=== PATIENT | female | born 1965 | race African-American/Black ===

== ENCOUNTER 2019-07-08 01:48 | Inpatient (IN) | payer MEDICARE, MEDICAID ==
[2019-07-08 02:19] LABS: Actual Bicarbonate (HCO3a) 10.7 mEq/L (22-28); Analyzer IN Cardio ER; Base Excess (BEa) -23.5 mEq/L (-2.0 to +3.0); Calcium, Ionized 1.28 mmol/L (1.12-1.30); Carboxyhemoglobin (COHb) 5.9 gm% (0.0-3.0); Hemoglobin (Hb) 12.1 g/dL (12.0-16.0); O2 Tension (PaO2) 127.6 mmHg (80.0-100.0); Potassium - ABG Lab 4.75 mmol/L (3.70-5.30)
[2019-07-08] MEDS ORDERED: Magnesium 2 GM/50 ML BAG (IN WATER) ONE (02:21)
[2019-07-08 02:24] LABS: CO2 Tension 65.1 mmHg (35.0-45.0); pH, Arterial 6.83 (7.35-7.45)
[2019-07-08 02:25] LABS: ALV-art Gradient 504.025 (0-20); Puncture Site LRA
[2019-07-08] MEDS ORDERED: Fentanyl 100 MCG/2 ML VIAL ONE (02:32)
[2019-07-08] MEDS ORDERED: Midazolam HCl 2 mg/2 ml Vial ONE (02:32)
[2019-07-08] MEDS ORDERED: fentaNYL Citrate/PF 2,000 MCG in Sodium Chloride 0.9% 60 ML IV SCH (02:33)
[2019-07-08] MEDS ORDERED: Sodium Bicarb 50 MEQ/50 ML VIAL ONE (02:49)
[2019-07-08 03:04] LABS: Mean Corpuscular HGB CONC 32.3 g/dL (32.0-36.0); Mean Corpuscular Volume 89.6 fL (78.0-98.0); Mean Platelet Volume 8.9 fL (7.4-10.4); Platelet Count 218 thou/uL (130-400); RBC Distribution Width 16.1 % (11.5-14.5); Red Blood Cell (RBC) Count 4.16 mill/uL (4.20-5.40); White Blood Cell (WBC) Count 16.1 thou/uL (4.8-10.8)
[2019-07-08 03:27] LABS: ALT (SGPT) 82 U/L (8-55); AST (SGOT) 68 U/L (5-34); Albumin 3.6 g/dL (3.5-5.0); Alkaline Phosphatase 57 U/L (40-110); Anion Gap 28 mmol/L (10-20); BUN (Urea Nitrogen) 65 mg/dL (9.8-20.1); Bilirubin, Total 0.5 mg/dL (0.2-1.2); CK (CPK) 141 U/L (29-168); Calc. Creatinine Clearance 0 mL/min (70-130); Calcium 11.5 mg/dL (7.8-10.44); Carbon Dioxide 14 mmol/L (22-29); Chloride 102 mmol/L (98-107); Estimated GFR-MDRD 4; Globulin 3.4 g/dL (2.4-3.5); Glucose 207 mg/dL (70-105); Potassium 5.6 mmol/L (3.5-5.1); Sodium 138 mmol/L (136-145)
--- NOTE | 2019-07-08 03:29 | PDOC.FPRHP ---
- History of Present Illness Chief Complaint: Cardiac Arrest History of Present Illness: 53yo female PMHx of ESRD presented to the ED via private car with cardiac arrest. Pt's friends who drove pt to ED reported that she was at their house when she started to complain of SOB. They called 911 but decided to transport her themselves. In route pt had a seizure and became unresponsive. Upon arrival pt was pulseless and resuscitation was initiated. Pt received multiple rounds of epi and ROSC was achieved. Pt was intubated and had a fem line placed. Pressures were extremely elevated as high as 270/130, but had came down to 180/ 95 at time of evaluation. Pt is a MWF dialysis pt of Dr. Mobley. She has had multiple admissions in the past requiring immediate hemodialysis. Upon eval no friends or family members were present further limiting recent history. ED Course: 3 amps sodium bicarb, 2mg Epi, 1,000mg calcium chloride, 1L NS, 2g Mg Sulfate. Pt was sedated and intubated. - Allergies/Adverse Reactions Allergies Allergy/AdvReac Type Severity Reaction Status Date / Time hydralazine Allergy Unknown Verified 07/08/19 05:38 Penicillins Allergy Unknown Verified 07/08/19 05:38 morphine AdvReac Unknown Verified 07/08/19 05:38 - History PMHx:ESRD with MWF dialysis, HTN, HLD, seizures, extensive psych history PSHx: L knee, uterine ablation, left extremity dialysis shunt FHx: non-contributory Social: no smoking, alcohol, drugs - Review of Systems ROS unobtainable: due to mental status - Vital signs BP: 189/146, Pulse: 108, Temp: 94.1 (Criticore Temp), O2 sat: 85 on Ventilator - Physical Exam -Constitutional: Sedated and intubated HEENT: normocephalic and atraumatic -HEENT: Pupils sluggishly reactive to light Neck: no JVD Heart: pulses present -Heart: Tachycardic, difficult to hear heart sounds over ventilator -Lungs: Audible secretion movement with ventilated respirations, equal breath sounds Abdomen: soft Musculoskeletal: normal structure, normal tone -Neurological: Unable to assess in paralyzed and sedated pt Skin: no rash/lesions Heme/Lymphatic: no unusual bruising or bleeding, no purpura FMR H&P: Results - Labs Result Diagrams: 07/08/19 02:50 07/08/19 02:50 Lab results: WBC 16.1 thou/uL (4.8-10.8) H 07/08/19 02:50 Hgb 12.0 g/dL (12.0-16.0) 07/08/19 02:50 Hct 37.2 % (36.0-47.0) 07/08/19 02:50 MCV 89.6 fL (78.0-98.0) 07/08/19 02:50 Plt Count 218 thou/uL (130-400) 07/08/19 02:50 ABG pH 6.83 (7.35-7.45) L* 07/08/19 02:08 ABG pCO2 65.1 mmHg (35.0-45.0) H* 07/08/19 02:08 ABG pO2 127.6 mmHg (80.0-100.0) H 07/08/19 02:08 - EKG Interpretation EKG: Tachycardic w/ complete RBBB FMR H&P: A/P - Problem List (1) Cardiac arrest Current Visit: Yes Status: Acute Code(s): I46.9 - CARDIAC ARREST, CAUSE UNSPECIFIED (2) End stage renal disease Current Visit: Yes Status: Acute Code(s): N18.6 - END STAGE RENAL DISEASE (3) Seizure Current Visit: Yes Status: Acute Code(s): R56.9 - UNSPECIFIED CONVULSIONS (4) High anion gap metabolic acidosis Current Visit: Yes Status: Acute Code(s): E87.2 - ACIDOSIS (5) Hyperkalemia Current Visit: Yes Status: Acute Code(s): E87.5 - HYPERKALEMIA (6) Hypertension Current Visit: Yes Status: Acute Code(s): I10 - ESSENTIAL (PRIMARY) HYPERTENSION (7) Hyperlipidemia Current Visit: Yes Status: Acute Code(s): E78.5 - HYPERLIPIDEMIA, UNSPECIFIED - Plan Cardiac Arrest - Achieved ROSC - S/p epi, sodium bicarb, calcium, mg - Intubated w/ sedation protocol - Hypothermic protocol - Ordered mg, phos, UDS, lactic, BNP - CXR and brain CT pending - Pulm consulted Anion Gap Metabolic Acidosis - Improved following sodium bicarb and mechanical ventilation - Likely 2/2 to lactic acidosis - Continue to trend BMP Seizures - PRN ativan - CT brain pending - Cont home rx once rec'd End Stage Renal Disease Hyperkalemia - Itz consulted - Emergent hemodialysis - Trend BMP Hypertension - Cardiem drip at 5 - Cont to monitor for severe pressures and titrate - Likely will come down with hemodialysis and continued sedation rx HLD - Continue home rx once rec'd Diet: NPO VTE: Heparin Dispo: Admit to CCU for sedation and intubation monitoring and hypothermia protocol. Pt's prognosis is poor considering time without CPR. FMR H&P: Upper Level - Plan Date/Time: 07/08/192 I, Elvis Granados MD, have evaluated this patient and agree with findings/plan as outlined by international relations professor resident. Pertinent changes/additions are listed here. Archana Billy is a 53 year old F with a PMH of ESRD on HD, HTN, HLD, unspecified seizure disorder who presented to the ED uresponsive. Patient's friend was with patient day of arrival and, per ERMD, said patient was complaining of shortness of breath. On the way to the ED, patient had a seizure if her friend's car and became unresponsive. Upon arrival to ED, patient was in asystole and CPR was initiated. Patient was intubated and started on mechical ventilation, 3 amps bicarb, 2 mg epi, 1 g calcium chloride, 1 L NS, and 2 g Mg Sulfate were given. Right fem CVC placed and L tibial IO placed. Initially, after achieving ROSC, patient was hypotensive but began to seize again. BPs since that time have been elevated as high as 270s systolic. Pt afebrile. Potassium is 5.6. WBC 16.1. Pt has had multiple admissions over the past several months requiring urgent hemodialysis. Dr. Fonseca was consulted from the ED and recommended emergent hemodialysis due to metabolic acidosis, hyperkalemia and fluid overload. Patient was transferred to the ICU. Unsure of exact etiology at this time. Checking Mag, Phos, UDS, BNP. Brain CT appeared negative on preliminary read, awaiting radiology read. Admitting to CCU for s/p Cardiac arrest with ROSC, hypertensive emergency with pulmonary edema. Starting nicardipine gtt for elevated BPs. Patient will undergo emergent HD. Please see international relations professor note above for full H&P, which I have reviewed and agree with.
[2019-07-08] MEDS ORDERED: Midazolam HCl 5 mg/ml Vial ONE (03:36)
[2019-07-08] MEDS ORDERED: Propofol 1,000 MG/100 ML VIAL IV ONE (03:36)
[2019-07-08 03:43] LABS: Band 3 % (5-11); Eosinophils 1 % (0-10); Lymphocytes 41 % (21-51); MDiff Complete? YES; Monocytes 6 % (0-10); Neutrophil 49 % (42-75); Platelet Morphology Comment Appears Adequate; RBC Morphology Normal
[2019-07-08 04:02] LABS: Actual Bicarbonate (HCO3a) 21.3 mEq/L (22-28); Base Excess (BEa) -3.3 mEq/L (-2.0 to +3.0); CO2 Tension 36.6 mmHg (35.0-45.0); Calcium, Ionized 1.27 mmol/L (1.12-1.30); Carboxyhemoglobin (COHb) 3.1 gm% (0.0-3.0); Hemoglobin (Hb) 13.3 g/dL (12.0-16.0); Potassium - ABG Lab 5.44 mmol/L (3.70-5.30); pH, Arterial 7.38 (7.35-7.45)
[2019-07-08 04:03] LABS: O2 Tension (PaO2) 46.1 mmHg (80.0-100.0)
[2019-07-08 04:04] LABS: Puncture Site RBR
[2019-07-08] MEDS ORDERED: Propofol BOLUS 1,000 MG/100 ML VIAL IV PRN (04:28)
[2019-07-08] MEDS ORDERED: Fentanyl BOLUS 250 ML IVPB PRN (04:28)
[2019-07-08] MEDS ORDERED: Morphine 2 MG/ML SYRINGE SLOW IVP PRN (04:28)
[2019-07-08] MEDS ORDERED: DISCONTINUE PREVIOUS NARCOTIC PAIN MEDICATIONS AND BENZODIAZEPINES FS SCH (04:28)
[2019-07-08 04:41] VITALS: BMI 29.1
[2019-07-08] MEDS ORDERED: Acetaminophen 650 MG Suppository PR PRN (04:55)
[2019-07-08] MEDS ORDERED: Acetaminophen 325 MG TAB PO PRN (04:55)
--- NOTE | 2019-07-08 04:58 | PDOC.EVN ---
Event Note - Event Note Event Note: Date/Time: 07/08/19 0456 I personally evaluated the patient and discussed the management with Dr. Canseco I agree with the History, Examination, Assessment and Plan documented above with any addition or exceptions noted below - 53 yo female with h/o HTN, HLD, Seizure d/o, ESRD on HD presented to ER unresponsive. Per ERMD, patient had been visiting friends when she c/o SOB and feeling hot. When they got her in the car, she had a seizure and then became unresponsive. On arrival to ER, patient was found to be in cardiac arrest. ACLS was initiated, she received chest compressions, 2 rounds of epinephrine, and was intubated. After ROSC, BP was noted to be very high (SBP>200). Additionally patient had another seizure in the ER. She was started on sedation (propofol). Afebrile BP 193/115 P 108 Exam repeated by me and agree with resident's findings. Labs: WBC=16.1, H/H=12.0 /37.2, Vuc=694, Ap=851, k=5.6, Ta=234, CO2=14, BUN/Cr=65/12.96, Hcwn=909, AST/ ALT=68/82, ABG (initial) - 6.83/65/127/10 95%, ABG (follow-up) - 7.38/36/46/21 79% CXR- pulmonary edema A/P: 1) S/P Cardiac arrest with ROSC- Admit to ICU; continue supportive care. 2) Hypertensive emergency with pulmonary edema - nephrology consulted for emergent dialysis. Monitor BP- may need nicardine drip. 3) DM- monitor accuchecks; insulin as needed. 4) Seizures- seizure precautions
[2019-07-08] MEDS ORDERED: niCARdipine 25 MG in Sodium Chloride 0.9% 250 ML 240 ML IVPB SCH (05:30)
[2019-07-08] MEDS ORDERED: Dextrose 5% in Water 1,000 ML IV PRN (06:04)
[2019-07-08] MEDS ORDERED: HumaLOG 300 UNITS/3 ML VIAL SC PRN ×2 (06:04)
[2019-07-08] MEDS ORDERED: Dextrose 50% Abboject 50 ML SYRINGE SLOW IVP PRN (06:04)
[2019-07-08 06:16] VITALS: TEMP 94.1
[2019-07-08 06:28] LABS: Amphetamine Not Detected (NotDetected); Barbiturates Screen Not Detected (NotDetected); Benzodiazepine Screen Not Detected (NotDetected); Cocaine Metabolite Screen Detected (NotDetected); Medtox Control Line Valid? VALID (VALID); Medtox Reader # READER 1; Methadone Not Detected (NotDetected); Methamphetamine Not Detected (NotDetected); Opiate Screen Not Detected (NotDetected); Oxycodone Screen Not Detected (NotDetected); Phencyclidine (PCP) Not Detected (NotDetected); THC/Cannabinoid Screen Not Detected (NotDetected); Tricyclic Screen Not Detected (NotDetected)
[2019-07-08 07:29] LABS: Actual Bicarbonate (HCO3a) 24.6 mEq/L (22-28); CO2 Tension 26.7 mmHg (35.0-45.0); Calcium, Ionized 1.18 mmol/L (1.12-1.30); Carboxyhemoglobin (COHb) 1.6 gm% (0.0-3.0); Hemoglobin (Hb) 14.5 g/dL (12.0-16.0); O2 Tension (PaO2) 76.7 mmHg (80.0-100.0); Potassium - ABG Lab 3.14 mmol/L (3.70-5.30)
[2019-07-08 07:30] LABS: ALV-art Gradient 602.925 (0-20); Puncture Site RRA; pH, Arterial 7.58 (7.35-7.45)
[2019-07-08] MEDS: Lorazepam 2 MG/ML VIAL SLOW IVP PRN ×4 (07:39→20:00)
[2019-07-08] MEDS ORDERED: FOSPHENYTOIN SODIUM IVPB SCH ×2 (09:15→09:45)
[2019-07-08] MEDS ORDERED: SODIUM CHLORIDE 0.9% IVPB SCH ×2 (09:15→09:45)
[2019-07-08] MEDS ORDERED: Lorazepam 2 MG/ML VIAL SLOW IVP SCH (09:30)
--- NOTE | 2019-07-08 09:34 | CT ---
PRELIMINARY REPORT/[facility]/EMERGENCY AFTER HOURS PROCEDURE: PROCEDURE INFORMATION: Exam: CT Head Without Contrast Exam date and time: 07/08/2019 3:35 AM Clinical history: 53 years old, female; Altered mental status/memory loss; Patient HX: Unresponsive 5 4 y/o F presents to ED with her family. Family reports that PT, who has HX of asthma, began to experi ence dyspnea early this morning, prompting family to bring PT to ED. Family states that PT began seizing at approx 0130 after getting into the car as has been unresponsive since that time. TECHNIQUE: Imaging protocol: Computed tomography of the head without contrast. COMPARISON: No relevant prior studies available. FINDINGS: Brain: Normal. Ventricles: Normal. Bones/joints: Normal. Sinuses: Mild ethmoid sinus disease. Mastoid air cells: Normal as visualized. Soft tissues: Unremarkable. IMPRESSION: No acute intracranial abnormality. Thank you for allowing us to participate in the care of your patient. Dictated and Authenticated by: Bernabe Espinoza MD 07/08/2019 3:49 AM Central Time ([place] & [place]) FINAL REPORT HEAD CT WITHOUT CONTRAST: Date: 07/08/19 COMPARISON: 11/04/17. HISTORY: Unresponsive patient. FINDINGS: No parenchymal hemorrhage or extra-axial hematoma. No midline shift. Brain volume is age-appropriate. Cortical perez-white matter differentiation preserved. No hydrocephalus. Calvarium is intact. Minimal mucosal thickening of the ethmoid air cells. IMPRESSION: This report is in agreement with the preliminary report by Bessie. No acute intracranial process. POS: [facility]
[2019-07-08] MEDS ORDERED: levETIRAcetam In NaCl (Iso-Os) 1,000 MG in Premix Bag 1 BAG IVPB SCH (09:45)
[2019-07-08] MEDS: Heparin 5,000 UNITS/ML VIAL SC SCH ×3 (09:48→20:05)
--- NOTE | 2019-07-08 10:01 | RAD ---
CHEST ONE VIEW: INDICATIONS: History of being unresponsive with history of asthma and dyspnea. COMPARISON: 06/28/2019 FINDINGS: There is worsening cardiomegaly with pulmonary vascular congestion and perihilar air space disease. N o pneumothorax is evident. The patient is intubated with gastric catheter placement. IMPRESSION: 1. Worsening cardiomegaly with pulmonary vascular congestion and perihilar air space disease, suspici ous for volume overload or congestive heart failure. 2. The patient is now intubated with associated gastric catheter placement. POS: OFF
--- NOTE | 2019-07-08 10:34 | CON ---
DATE OF CONSULTATION: REASON FOR CONSULTATION: Hyperkalemia, acidosis. HISTORY OF PRESENT ILLNESS: This is a 53-year-old female presented with complete cardiac arrest, was noted to have volume overload as well as severe hypertensive urgency after cocaine use. The patient's CPR was performed and we were consulted for urgent dialysis. The patient can give no further history. PAST MEDICAL HISTORY: Significant for hypertension, ESRD, anemia, history of drug use, history of narcotic pain medication use, left knee surgery, and AV fistula. history of drug use. REVIEW OF SYSTEMS: Unobtainable. PHYSICAL EXAMINATION: CONSTITUTIONAL: The patient is resting. VITAL SIGNS: Pulse 79, breathing 16, and blood pressure 189/146. GENERAL APPEARANCE AND MENTAL STATUS: Fair. HEAD/NECK: Normocephalic. Atraumatic. EYES: EOMI. No deformity. EARS: Clear. No ulcers. NOSE: Intact. No lesions. MOUTH: Clear. No discharge. THROAT: Clear. No exudate. LUNGS: Clear. No crackles. CARDIAC: S1, S2. No rub. ABDOMEN: Benign. Bowel sounds positive. GENITALIA/RECTUM: Mcgill absent. BACK/EXTREMITIES: Edema 0+. NEUROLOGICAL: The patient is having seizures. SKIN: LYMPHATICS: LABORATORY DATA: Show potassium 5.6 and bicarb 14. ASSESSMENT AND PLAN: 1. Stage 6 chronic kidney disease with hyperkalemia and metabolic acidosis. We will plan dialysis. Recheck potassium and change the bath based on the results. 2. Anemia, stable. 3. Metabolic acidosis. Plan dialysis. 4. Cardiac arrest and CPR management per primary team. Overall prognosis is poor. No family member was available. Dialysis was initiated after consent was obtained from the family. Job ID: [id number]
[2019-07-08 10:38] LABS: Lactic Acid 1.9 mmol/L (0.5-2.2)
[2019-07-08 10:42] LABS: Phosphorus 2.4 mg/dL (2.3-4.7)
[2019-07-08] MEDS: Propofol 1,000 MG/100 ML VIAL IV PRN ×2 (12:52→19:56)
--- NOTE | 2019-07-08 14:17 | CON ---
DATE OF TELEMEDICINE CONSULTATION: 07-08-19 CHIEF COMPLAINT: Seizures. HISTORY OF PRESENT ILLNESS: History was obtained both from the treating team as well as her family. The patient is known to have bipolar disorder and anxiety, and she has been taking drugs since childhood, and she goes on and off and does use recreational drugs and does not smoke or drink and lives by herself. Sister thinks she went off yesterday to do some drugs, and they found her with seizure-like activity at home. She had CPR in the parking lot and also had continued CPR and eventually was intubated. She was noted to have involuntary movements. She was also in the backseat of the car by herself. Total time for CPR is estimated to be 15 minutes, and she might have been without attention for another 15 minutes. There is questionable duration of this loss of alertness. Sister says she has been diagnosed 8 months ago with seizures, and she has been on antiepileptic drugs at that time at home, and the patient's family is not sure about her medications. Home medication list was reviewed, and per chart, there is no antiepileptic listed. PREVIOUS MEDICAL HISTORY: The patient has hypertension, hypercholesterolemia, end-stage renal disease, and sister thinks the renal disease is also from drug use, and she has been on dialysis for a number of years. She has hyperlipidemia and extensive psychiatric history. SURGICAL HISTORY: She had left knee surgery, uterine ablation, left extremity dialysis shunt, and removal of nonfunctional shunt recently. FAMILY HISTORY: Her mother at 73 from leukemia. Father at 82 from natural causes. The patient has 5 siblings, all are healthy. The patient has two sons and a daughter, all are healthy. REVIEW OF SYSTEMS: Unobtainable due to her mental status. LABORATORY AND DIAGNOSTIC DATA: Lab workup so far; white count 16.1, hemoglobin 12, hematocrit 37.2, and platelet count 218. Sodium 138, potassium 5.6, chloride 102, bicarb 14, BUN 65, creatinine 12.96, glucose 207, AST 68, ALT 82, alkaline phosphatase 57. CPK 141, BNP 2637.7, and urine toxicology is positive for cocaine, and her MRI is pending. Her CT of the head performed today shows no acute intracranial abnormality. PHYSICAL EXAMINATION: VITAL SIGNS: Blood pressure 120/88, pulse rate is 105, and the patient is on hypothermia protocol with temperature at 93. CHEST: Clear vesicular breathing. CARDIOVASCULAR: S1 and S2 heard. No murmurs. NEUROLOGIC: Higher intellectual function. The patient is unresponsive even without sedation, and she does not withdraw to pain. Deep tendon reflexes were 1+ throughout. Pupils 2 mm, reactive. Corneal reflex is absent. No oculocephalics were noted, and she had positive cough and gag. Motor examination, no withdrawal to pain at all throughout the body, and no spontaneous movement was noted. She had a cortical toe on the right side and involuntary movements. She has myoclonic movements of the face involving the ocular muscles and jaw, abdominal myoclonus and also lower extremity myoclonus. Overall, generalized myoclonus was noted. Sensory and cerebellar, unable to examine. IMPRESSION: The patient is a 53-year-old lady, who unfortunately has taken cocaine in the setting of prior history of seizures, and she had recent surgery with cyst removal on Saturday per her sister from the arm, and she has had continued renal failure and is on dialysis. She had CPR for approximately 15 minutes and was down for an unspecified period of time and has now developed anoxic myoclonus in this setting based on her history and examination. EEG was reviewed. She had primarily burst suppression, which can also be seen in setting of hypothermia. TREATMENT PLAN: Please start the patient on Keppra 1 g b.i.d., and we can repeat EEG tomorrow once her hypothermia protocol is completed. Job ID: [id number] MTDD
--- NOTE | 2019-07-08 14:57 | CON ---
DATE OF CONSULTATION: 07/08/2019 SERVICE: Pulmonary Medicine. REASON FOR CONSULTATION: ICU patient. HISTORY OF PRESENT ILLNESS: The patient is a 53-year-old female with past medical history significant for end-stage renal disease, and extracurricular activities that include substance abuse. She was found down. Chest compressions were performed. Ultimately, there was spontaneous return of circulation after protracted downtime. She was brought to the emergency department. She remained hemodynamically stable. She was tucked in the ICU. She has evidence of a severe neurologic injury, currently she is in the cooling protocol. She cannot provide any additional elements of the history. It is my understanding that prior to this event when she was found down, she was in her usual state of health. PAST MEDICAL HISTORY: 1. End-stage renal disease. 2. Hypertension. 3. Dyslipidemia. 4. Seizure disorder. 5. Extensive psychiatric history. PAST SURGICAL HISTORY: 1. Left knee surgery. 2. Uterine ablation. 3. Left upper extremity dialysis shunt placement. FAMILY HISTORY: Noncontributory. SOCIAL HISTORY: Positive for recreational drug use. There are no reports of smoking or alcohol. ALLERGIES: HYDRALAZINE, PENICILLIN, AND MORPHINE. MEDICATIONS: List of her inpatient medications was reviewed. No specific updates were made at this time. REVIEW OF SYSTEMS: General; head, ears, eyes, nose, throat; cardiovascular; respiratory; GI; ; musculoskeletal; neurologic; and skin are negative except as mentioned in the HPI. PHYSICAL EXAMINATION: VITAL SIGNS: Afebrile, pulse 90, blood pressure 107/82, respirations 13, and saturation 100% on 50% FiO2 and a PEEP of 5. GENERAL: The patient is intubated. She is on no sedation, but remains completely obtunded. She has these jerking movements that involve both upper and lower extremities at the exact same moment. She will open up her eyes during these events. HEENT: Normocephalic and atraumatic. Sclerae white. Conjunctivae pink. Oral mucosa is moist without lesions. LUNGS: Decent air entry. There are crackles present. No rhonchi. No prolonged expiratory phase or wheezing is appreciated. HEART: Normal rate and regular. ABDOMEN: Soft, nontender, and nondistended. Bowel sounds are positive. MUSCULOSKELETAL: No cyanosis or clubbing. There is no pitting throughout. NEUROLOGIC: Her pupils are fixed. They do not move with light. She barely overbreathes the ventilator when I turn the setting down quite low. She does not withdraw from noxious stimuli in bilateral upper or lower extremities. She is demonstrating myoclonic jerking movements, which are episodic and spread throughout bilateral upper and lower extremities. LABORATORY DATA: WBC 16.1, hemoglobin 12.0, platelets 218,000. A pH 7.58, pCO2 of 26, pO2 of 76. Creatinine 12.96, BUN 65, and potassium 5.6. Basic metabolic profile is otherwise unremarkable. AST and ALT are marginally elevated. BNP 2600. Liver function studies are otherwise unremarkable. Magnesium, phosphorus, and lactate are all unremarkable at this point. Cocaine is positive on the urine drug screen. It is otherwise unremarkable. Beta-hydroxybutyric acid is minimally elevated. IMAGIN. CT of the brain demonstrates no acute intracranial abnormality. 2. Chest x-ray demonstrates good placement for the endotracheal tube. Centrally located pulmonary edema is present. It seems it spared the inferior and periphery. This is likely consistent with pulmonary contusions. I do not see any obvious consolidating changes present. Pacer pads are in place. ASSESSMENT: 1. Pulseless electrical activity arrest. 2. Anoxic brain injury. 3. Seizure. 4. End-stage renal disease. 5. Cocaine abuse. DISCUSSION AND PLAN: The patient demonstrates signs of anoxic brain injury. By report, I am told the EEG was consistent with a burst suppression pattern without significant epileptiform discharges. We will continue our cooling protocol. I backed off on her rate along on mechanical ventilator. In 24 to 48 hours, if she does not makes significant headway from a neurologic perspective, we will be discussing transition over to comfort care only with the patient's family. Based on her current neurologic exam, she has sustained a catastrophic injury and is unlikely to make a meaningful recovery. CRITICAL CARE TIME: 30 minutes. Job ID: [id number]
[2019-07-08] MEDS: levETIRAcetam In NaCl (Iso-Os) 1,000 MG in Premix Bag 1 BAG IVPB SCH (20:05)
[2019-07-09] MEDS: Propofol 1,000 MG/100 ML VIAL IV PRN ×3 (00:55→13:17)
[2019-07-09 01:50] LABS: #Lymphocytes 1.4 thou/uL (1.20-3.40); #Monocytes 0.3 thou/uL (0.11-0.59); #Neutrophils 10.9 thou/uL (1.40-6.50); %Basophils 0.2 % (0.0-1.0); %Eosinophils 0.2 % (0.0-10.0); %Lymphocytes 10.7 % (21.0-51.0); %Monocytes 2.1 % (0.0-10.0); %Neutrophils 86.7 % (42.0-75.0); Hemoglobin 12.2 g/dL (12.0-16.0); Mean Corpuscular HGB CONC 32.2 g/dL (32.0-36.0); Mean Corpuscular Hemoglobin 28.7 pg (27.0-31.0); Mean Corpuscular Volume 89.3 fL (78.0-98.0); Mean Platelet Volume 8.9 fL (7.4-10.4); Platelet Count 168 thou/uL (130-400); RBC Distribution Width 16.4 % (11.5-14.5); Red Blood Cell (RBC) Count 4.24 mill/uL (4.20-5.40); White Blood Cell (WBC) Count 12.6 thou/uL (4.8-10.8)
[2019-07-09 01:52] LABS: INR-International Normal Ratio 1.3; PTT 38.1 SEC (22.9-36.1); Prothrombin Time 15.8 SEC (12.0-14.7)
[2019-07-09] MEDS: Lorazepam 2 MG/ML VIAL SLOW IVP PRN ×2 (02:07→12:20)
[2019-07-09 02:14] LABS: ALT (SGPT) 64 U/L (8-55); AST (SGOT) 56 U/L (5-34); Albumin 3.4 g/dL (3.5-5.0); Alkaline Phosphatase 44 U/L (40-110); Anion Gap 19 mmol/L (10-20); BUN (Urea Nitrogen) 31 mg/dL (9.8-20.1); Bilirubin, Total 0.6 mg/dL (0.2-1.2); CK (CPK) 543 U/L (29-168); Calc. Creatinine Clearance 9 mL/min (70-130); Calcium 9.7 mg/dL (7.8-10.44); Carbon Dioxide 28 mmol/L (22-29); Chloride 96 mmol/L (98-107); Estimated GFR-MDRD 6; Globulin 3.4 g/dL (2.4-3.5); Glucose 113 mg/dL (70-105); Magnesium 2.1 mg/dL (1.6-2.6); Phosphorus 5.9 mg/dL (2.3-4.7); Potassium 6.1 mmol/L (3.5-5.1); Protein, Total 6.8 g/dL (6.0-8.3); Sodium 137 mmol/L (136-145)
[2019-07-09 02:17] LABS: Troponin I 0.248 ng/mL (< 0.028)
[2019-07-09 02:22] LABS: CKMB 9.1 ng/mL (0-6.6)
--- NOTE | 2019-07-09 07:42 | PDOC.FM ---
- Subjective Subjective: Pt remains intubated and sedated, on rewarming protocol. Pupils unresponsive. Continues to have myoclonic jerking intermittently. Was briefly on cardizem drip overnight for SBP> 180, now off cardizem and SBP of 150. - Objective Vital Signs & Weight: Vital Signs (12 hours) Pulse Resp BP Pulse Ox 07/09/19 07:00 67 157/91 H 07/09/19 06:00 13 07/09/19 04:00 15 07/09/19 02:02 75 07/09/19 02:00 16 07/09/19 00:00 15 07/08/19 22:07 73 07/08/19 22:00 13 07/08/19 20:00 20 100 Weight Admit Weight 74.6 kg Weight 74.6 kg Most Recent Monitor Data Heart Rate from ECG 66 NIBP 153/107 NIBP BP-Mean 122 Respiration from ECG 17 SpO2 100 I&O: 07/08/19 07/09/19 07/10/19 06:59 06:59 06:59 Intake Total 20.1 787.6 Output Total 345 Balance 20.1 442.6 Result Diagrams: 07/09/19 01:31 07/09/19 01:31 Phys Exam - Physical Examination Intubated and sedated, intermittent jerking movements HEENT: sclera anicteric pupils 2 mm and unreactive to light, unaccomodating Neck: no nodes, supple Respiratory: no wheezing, clear to auscultation bilateral Cardiovascular: RRR Gastrointestinal: soft, positive bowel sounds Musculoskeletal: no edema, pulses present sedated Skin: no rash, normal turgor, cap refill <2 seconds Dx/Plan (1) Cardiac arrest Code(s): I46.9 - CARDIAC ARREST, CAUSE UNSPECIFIED Status: Acute (2) End stage renal disease Code(s): N18.6 - END STAGE RENAL DISEASE Status: Chronic (3) High anion gap metabolic acidosis Code(s): E87.2 - ACIDOSIS Status: Acute (4) Hyperkalemia Code(s): E87.5 - HYPERKALEMIA Status: Acute (5) Hyperlipidemia Code(s): E78.5 - HYPERLIPIDEMIA, UNSPECIFIED Status: Chronic (6) Hypertension Code(s): I10 - ESSENTIAL (PRIMARY) HYPERTENSION Status: Chronic (7) Cocaine abuse Code(s): F14.10 - COCAINE ABUSE, UNCOMPLICATED Status: Acute (8) Myoclonic disorder Code(s): G25.3 - MYOCLONUS Status: Acute - Plan Plan: S/p Cardiac Arrest - Achieved ROSC - UDS + for cocaine - Pt found unresponsive when family arrived with pt in parking lot; coded for about 15 minutes - S/p epi, sodium bicarb, calcium, mag - Intubated w/ sedation protocol - Hypothermia protocol; Rewarming has been initiated at 0515 this AM as part of hypothermia protocol Anoxic Myoclonus -Dr. Zaragoza, neurology consulted -EEG showed non-epileptic burst suppression, likely 2/2 anoxia vs hypothermia. Will be repeated after rewarming complete -continue Keppra 1 g BID -Pt continues on propofol for sedation, ativan PRN End Stage Renal Disease Hyperkalemia - K of 6.1 overnight - Dr. Fonseca consulted from ED - HD yesterday, will be repeated this AM Anion Gap Metabolic Acidosis - Improved following sodium bicarb and mechanical ventilation - Likely 2/2 to lactic acidosis Hypertension - Pt briefly on Cardizem drip for BP >180/110, now stable and off cardizem - Cont to monitor for severe pressures and titrate HLD - aware Cocaine use -UDS positive, aware. Hx of cocaine use Diet: NPO VTE: Heparin Dispo: Prognosis is poor, repeat EEG planned for this AM once rewarming achieved Addendum - Attending - Attending Attestation Date/Time: 07/10/19 1236 I personally evaluated the patient and discussed the management with Dr. Rios I agree with the History, Examination, Assessment and Plan documented above with any addition or exceptions noted below. Patient with evidence of hypoxic brain injury. EEG read pending. Currently on cool protocol for ROSC. Continue as needed HD. Spoke with son and daughter during exam today. Both agreed that patient would not want heroic measures. Patient made DNR. Nursing staff present for discussion. Awaiting neuro recs tomorrow morning after repeat EEG. Jerri
[2019-07-09 10:21] LABS: Actual Bicarbonate (HCO3a) 28.3 mEq/L (22-28); Base Excess (BEa) 5.8 mEq/L (-2.0 to +3.0); CO2 Tension 34.2 mmHg (35.0-45.0); Calcium, Ionized 1.12 mmol/L (1.12-1.30); Hemoglobin (Hb) 13.2 g/dL (12.0-16.0); O2 Tension (PaO2) 85.6 mmHg (80.0-100.0); Potassium - ABG Lab 3.38 mmol/L (3.70-5.30); pH, Arterial 7.54 (7.35-7.45)
[2019-07-09 10:23] LABS: Puncture Site RRA
[2019-07-09] MEDS: Heparin 5,000 UNITS/ML VIAL SC SCH (10:40)
[2019-07-09] MEDS: levETIRAcetam In NaCl (Iso-Os) 1,000 MG in Premix Bag 1 BAG IVPB SCH (10:41)
[2019-07-09 11:04] VITALS: BP 123/93
[2019-07-09] MEDS ORDERED: Calcium Chloride 1 GM/10 ML Abboject SYRINGE ONE (11:11)
[2019-07-09] MEDS ORDERED: EPINEPHrine 1 MG/10 ML Abboject SYRINGE ONE (11:11)
[2019-07-09] MEDS ORDERED: Sodium Bicarb 50 MEQ/50 ML Abboject 8.4% SYRINGE ONE (11:11)
--- NOTE | 2019-07-09 12:05 | PRG ---
DATE OF TELEMEDICINE FOLLOW UP SERVICE: 07/09/2019 CHIEF COMPLAINT: Myoclonus. INTERVAL HISTORY: The patient continues to have myoclonic movements. Family was by the bedside and expressed to me that they did not want her to suffer, particularly her daughter was expressing that. The patient is unresponsive even now. Repeat CT is pending at this time, and I requested that for tomorrow. Her EEG is also extending since she has to be euthermic before we repeat her EEG or we would see the burst suppression again. Current laboratory workup; white count 12.6, hemoglobin 12.2, hematocrit 37.8, and platelet count 168. Chemistry; sodium 137, potassium 6.1, chloride 96, bicarbonate 28, BUN 31, creatinine 7.99, and glucose 113. Troponin 0.248, CK-MB 9.1. PHYSICAL EXAMINATION: VITAL SIGNS: Pulse 118, blood pressure 123/93, heart rate 66, and temperature 95.9. GENERAL: The patient has been examined, off sedation, has generalized whole- body myoclonus with eyes rolling upwards and is unresponsive to any stimuli. Cranial nerves, corneal is absent. Gag present. No oculocephalic. Motor exam, deep tendon reflex is absent. She did not respond to any stimuli. IMPRESSION AND PLAN: The patient is a 53-year-old lady with unfortunate brain injury, likely based on clinical history and examination. She has generalized myoclonus, and yesterday's EEG showed burst suppression pattern. I discussed all this with the daughter and son, who were present in the room. I also advised them that we will repeat her EEG and obtain a CT scan to establish the diagnosis of anoxic injury. Shortly after I rounded, the patient's nurse called me, stating they are wanting to withdraw care, and I explained to her that I do not have evidence based on CT scan that she suffered anoxic injury, and I am not certifying that she has any brain and the decision is entirely up to the family. The patient's family also had conversations with the park naturalist who is her primary critical care doctor. I will follow up the patient again tomorrow. Job ID: [id number] MTDD
--- NOTE | 2019-07-09 12:26 | PDOC.EVN ---
Event Note - Event Note Event Note: Spoke with daughterRobbie around 11 PM. Daughter is desiring terminal extubation. She understands that if her mother is extubated, she will likely . She states her mother would want to be on a ventilator. Plan for extubation this afternoon. Attending Note: Present for conversation. Family understands prognosis. EEG this morning showing poor brain function with significant evidence of hypoxic brain injury. Will proceed with terminal extubation. Jerri
[2019-07-09] MEDS ORDERED: Lorazepam 2 MG/ML VIAL SLOW IVP PRN (12:31)
[2019-07-09] MEDS ORDERED: Scopolamine 1.5 mg/72 hour Patch TD SCH (12:45)
[2019-07-09] MEDS: Morphine 2 MG/ML SYRINGE SLOW IVP PRN ×3 (12:58→13:27)
--- NOTE | 2019-07-09 13:00 | PRG ---
DATE OF SERVICE: 07/09/2019 SUBJECTIVE: This is a 53-year-old female, being seen for end-stage renal disease. The patient remains unresponsive. OBJECTIVE: CONSTITUTIONAL: The patient is resting. VITAL SIGNS: Afebrile, pulse 62, breathing 16, and blood pressure 123/90. GENERAL APPEARANCE AND MENTAL STATUS: Fair. HEAD/NECK: Normocephalic. Atraumatic. EYES: EOMI. No deformity. EARS: Clear. No ulcers. NOSE: Intact. No lesions. MOUTH: Clear. No discharge. THROAT: Clear. No exudate. LUNGS: Clear. No crackles. CARDIAC: S1, S2. No rub. ABDOMEN: Benign. Bowel sounds positive. GENITALIA/RECTUM: Mcgill absent. BACK/EXTREMITIES: Edema 0+. NEUROLOGICAL: The patient is comatose. SKIN: LYMPHATICS: LABORATORY DATA: Labs show potassium ASSESSMENT AND PLAN: . Chronic kidney disease, plan hemodialysis. Hypertension, stable. Anemia, stable. Anoxic brain injury. Management per Primary Team. Prognosis is poor. Dialysis is pending. Job ID: [id number]
--- NOTE | 2019-07-09 15:03 | PDOC.EVN ---
Event Note - Event Note Event Note: Progness Note of : PE: HEENT: pupils fixed and dilated Card: No pulse, no auscultated heart sounds Resp: No spontaneous respirations Neuro: No withdrawal to painful stimuli TOD: 1335, 07/09/2019 The family does not request an autopsy
--- NOTE | 2019-07-09 16:15 | PRG ---
DATE OF SERVICE: 07/09/2019 SERVICE: Pulmonary Medicine. INTERVAL HISTORY: The patient did fine overnight without significant cardiovascular or respiratory issues. She is on dialysis this morning. She cannot provide any additional elements of the history. After she is warmed, an EEG is going to be performed. A family meeting is going to follow. I believe the family is leaning toward transition over to comfort care only. I think that would be perfectly reasonable given the insult that we are seeing here. PHYSICAL EXAMINATION: VITAL SIGNS: Afebrile, pulse 119, blood pressure 151/92, respirations 16, saturation 100%, currently on 31% of FiO2 and PEEP of 5. GENERAL: The patient is intubated. She is on a little bit of sedation to suppress some of these myoclonic jerks. HEART: Normal rate and regular. ABDOMEN: Soft, nontender, nondistended. Bowel sounds are positive. MUSCULOSKELETAL: No cyanosis or clubbing. No pitting in the bilateral lower extremities. NEUROLOGIC: Pupils are extremely sluggish. She is over-breathing the ventilator when I turned the rate down. She does not withdraw from any noxious stimuli. Corneal reflexes are absent. She does not have a gag or cough with deep suctioning. She continues to have myoclonic jerks. LABORATORY DATA: WBC 12.6, hemoglobin 12.2, platelets 168,000. PH 7.54, pCO2 of 34, PO2 of 86. Creatinine 7.9, BUN 31. Potassium 6.1 and downtrending. Basic metabolic profile and liver function studies otherwise unremarkable. Troponin 0.248. Cocaine is positive on urine drug screen. ASSESSMENT: 1. Acute hypoxic respiratory failure, resolved. 2. Anoxic brain injury. 3. Seizure. 4. End-stage renal disease. 5. Cocaine abuse. DISCUSSION AND PLAN: After the patient is warmed up, we will repeat a neurologic exam, an EEG. Her neurologic exam is consistent with a devastating neurologic injury. It is unlikely that she could make a meaningful recovery from her current state. As such, I would not be opposed family transition over to comfort care today or tomorrow. If she remains in the ICU, I will continue to follow. CRITICAL CARE TIME: 30 minutes. Job ID: [id number]
[2019-07-09] MEDS ORDERED: Atropine Sulfate 1% Ophth Soln 5 ml Bottle PO SCH (21:00)
--- NOTE | 2019-07-10 04:51 | DIS ---
DATE OF ADMISSION: 07/08/2019 DATE OF DISCHARGE: 07/09/2019 SUMMARY ATTENDING: Dr. Bennett. RESIDENT: Chanell Rios MD. DATE OF : 07/09/2019. TIME OF : 1335 hours. CAUSE OF : Cocaine overdose leading to cardiac arrest and anoxic brain injury. SECONDARY DIAGNOSES: 1. Return of spontaneous circulation, status post cardiac arrest. 2. Anoxic myoclonus. 3. End-stage renal disease. 4. Hyperkalemia. 5. Anion gap metabolic acidosis. 6. Hypertension. 7. Hyperlipidemia. 8. Cocaine use. HOSPITAL COURSE: A 53-year-old female with a past medical history of ESRD, presented to the ED via private car with cardiac arrest. The patient's friend, who drove the patient to the ED, reported that she had been at their house when she started complaining of shortness of breath. They called 911, but transported her themselves. En route, the patient had seizure and became unresponsive. Upon arrival, the patient was pulseless and resuscitation was initiated. The patient received multiple rounds of epi and ROSC was achieved. The patient was intubated, had a femoral central line placed. She was given three amps of sodium bicarb, 2 mg of epi, 1000 mg of calcium chloride, 1 L normal saline, 2 g Mag sulfate. Her blood pressures were extremely elevated as high as 270/130, but had improved to 180/95. The patient had intermittent myoclonic jerking. Neurology was consulted and stated that she had likely anoxic myoclonus. Hypothermia protocol was started on the patient once ROSC was achieved. EEG while the patient was cooled showed nonepileptic burst suppression likely secondary to anoxia versus hypothermia. The patient was started on Keppra 1 g b.i.d. She was given Ativan p.r.n. The patient is on Saturday, Saturday, Saturday dialysis with Dr. Mobley. She has had multiple admissions in the past, requiring hemodialysis. The patient was found to have a potassium of 5.6. Dr. Mobley was consulted and the patient was started on hemodialysis. The patient remained intubated and sedated. The next day, the patient was started on hemodialysis again for a potassium of 6.1. She continued to show no improvement on the ventilator. She was unresponsive. Her pupils were fixed. Daughter was present at bedside and requested that patient be terminally extubated. The patient was extubated at 1305 and at 1335 hours on 07/09/2019. Job ID: [id number] MTDD
== END 2019-07-09 13:35 | disposition expired | DRG 917 ==
LOC: EDBD 01:48 → ERS 01:48 → CCU 04:20
PROVIDERS: ADMIT Specialist; ATTEND Specialist
PROC: 5A1D70Z Performance of Urinary Filtration, Intermittent, Less than 6 Hours Per Day (ICD-10-PCS; principal; 2019-07-08)
PROC: 5A12012 Performance of Cardiac Output, Single, Manual (ICD-10-PCS; 2019-07-08)
PROC: 3E033XZ Introduction of Vasopressor into Peripheral Vein, Percutaneous Approach (ICD-10-PCS; 2019-07-08)
PROC: 5A1945Z Respiratory Ventilation, 24-96 Consecutive Hours (ICD-10-PCS; 2019-07-08)
PROC: 0BH17EZ Insertion of Endotracheal Airway into Trachea, Via Natural or Artificial Opening (ICD-10-PCS; 2019-07-08)
PROC: 06HY33Z Insertion of Infusion Device into Lower Vein, Percutaneous Approach (ICD-10-PCS; 2019-07-08)
DX: T40.5X1A Poisoning by cocaine, accidental (unintentional), initial encounter (principal); N18.6 End stage renal disease; R40.2312 Coma scale, best motor response, none, at arrival to emergency department; R40.2112 Coma scale, eyes open, never, at arrival to emergency department; R40.2212 Coma scale, best verbal response, none, at arrival to emergency department; J96.01 Acute respiratory failure with hypoxia; I12.0 Hypertensive chronic kidney disease with stage 5 chronic kidney disease or end stage renal disease; E87.2 Acidosis; I16.1 Hypertensive emergency; G93.1 Anoxic brain damage, not elsewhere classified; Z66 Do not resuscitate; E78.5 Hyperlipidemia, unspecified; E87.5 Hyperkalemia; G40.909 Epilepsy, unspecified, not intractable, without status epilepticus; D63.1 Anemia in chronic kidney disease; I46.8 Cardiac arrest due to other underlying condition; E78.00 Pure hypercholesterolemia, unspecified; F14.10 Cocaine abuse, uncomplicated; Z79.899 Other long term (current) drug therapy; Z99.2 Dependence on renal dialysis; Z88.5 Allergy status to narcotic agent; Z88.0 Allergy status to penicillin; Z88.8 Allergy status to other drugs, medicaments and biological substances; Z78.1 Physical restraint status
CPT/HCPCS: 31500; 36416; 36556; 36680; 51702; 70450; 71045; 80053; 80306; 82010; 82550; 82553; 82805; 83605; 83735; 83880; 84100; 84484; 85025; 85610; 85730; 90935; 92950; 93005; 94002; 94003; 95816; 95819; 96361; 96374; 96375; G0257; J0171; J1644; J1953; J2060; J2250; J2270; J2704; J3010; J3475; J3490; J7050; Q2009